=== PATIENT | male | born 1965 | race Hispanic/Latino ===

== ENCOUNTER 2016-08-24 10:29 | Emergency (ER) | payer OTHER ==
[~2016-08-24] VITALS: Ht 170.2 cm; Wt 50.0 kg
[2016-08-24] MEDS ORDERED: FLEXERIL PO (12:48)
[2016-08-24] MEDS ORDERED: NAPROSYN500 MG PO (12:48)
[2016-08-24 12:59] VITALS: BP 116/66
== END 2016-08-24 12:59 | disposition home or self-care (01) | DRG 563 ==
LOC: EDBD 10:29 → ED 10:29
DX: S39.012A Strain of muscle, fascia and tendon of lower back, initial encounter (principal); X50.0XXA Overexertion from strenuous movement or load, initial encounter; Y93.89 Activity, other specified; Y92.79 Other farm location as the place of occurrence of the external cause